=== PATIENT | male | born 1985 | race Two or more races ===

== ENCOUNTER 2016-10-20 14:57 | Emergency (ER) | payer OTHER ==
[~2016-10-20] VITALS: Ht 175.3 cm; Wt 72.6 kg
[~2016-10-20 14:57] MED LIST: CIPROFLOXACIN500 M2 ORAL; LOMOTIL TABLET1 EACH ORAL
[2016-10-20 15:45] VITALS: BP 120/76
[2016-10-20] MEDS ORDERED: IBUPROFEN600 MG ORAL (16:09)
--- NOTE | 2016-10-20 16:17 | Diagnostic Imaging Report ---
Indication: Pain Comparison: None Findings: 3 views of the left foot were obtained. No acute fractures, malalignment, erosions or periostitis are identified. Bone mineralization is within normal limits. Soft tissues are unremarkable. Impression: No acute findings
--- NOTE | 2016-10-22 13:22 | Emergency Room Report ---
History of Present Illness General Chief Complaint: Lower Extremity Injury Source: Patient Present Illness HPI The patient is a 31-year-old male presenting for left foot pain which began 3 days prior. Patient states this pain began after participating in a run. He denies previous injury to the foot. He is unsure of why the pain began. It is worse with walking long distances. It is described as a 6/10 dull ache to the outside of the L foot. pain does not radiate. He has tried naproxen which does help. He denies any other symptoms include N, V, rash, fever, numbness/tingling Allergies: Coded Allergies: No Known Allergies (Unverified , 11/03/14) Patient History Past Medical History: see triage record Pertinent Family History: none Reviewed Nursing Documentation: PMH: Agreed, PSxH: Agreed Nursing Documentation-PMH Past Medical History: No Stated History Review of Systems All Other Systems: negative except mentioned in HPI Physical Exam Vital Signs Date Time Temp Pulse Resp B/P Pulse Ox O2 Delivery O2 Flow Rate FiO2 10/20/16 15:21 98.1 71 18 132/72 98 Room Air Sp02 EP Interpretation: reviewed, normal General Appearance: no apparent distress, alert, GCS 15, non-toxic Head: normocephalic, atraumatic Eyes: bilateral eye PERRL, bilateral eye normal inspection ENT: hearing grossly normal, normal pharynx, no angioedema, normal voice Neck: full range of motion, supple/symm/no masses Musculoskeletal: back normal, gait/station normal, normal range of motion, tender - No ankle tenderness or edema. TTP over the plantar surface of L lateral region. Neurologic: alert, oriented x3, responsive, motor strength/tone normal, sensory intact, normal gait, speech normal Psychiatric: judgement/insight normal, memory normal, mood/affect normal, no suicidal/homicidal ideation Skin: normal color, no rash, warm/dry, well hydrated Lymphatic: no adenopathy Medical Decision Making PA Attestation Dr. Tubbs is my supervising physician. Patient management was discussed with my supervising physician Diagnostic Impression: Primary Impression: Foot pain, left ER Course The patient is a 31-year-old male presenting for left foot pain which began 3 days prior. Ddx considered include but not limited to sprain/strain, fracture, contusion PE: Vitals WNL. NAD. L foot/ankle: Skin intact. No erythema or edema. Sensation intact to light touch. Full AROM. No joint laxity. No obvious deformity. Normal gait. TTP over the plantar surface of lateral foot. No ankle TTP. X-ray of the foot is unremarkable. The patient is discharged home and will followup with PMD. He is given RICE instruction. The patient is informed that he may need advanced imaging if pain continues. ER precautions given Other X-Ray Diagnostic Results Other X-Ray Diagnostic Results : X-Ray Ordered: L foot Date: October 20, 2016 EP Interpretation: Yes Findings: no fractures, no dislocation, no soft tissue swelling Number of Views: 3 PA Scribe Text I am acting as scribe for my supervising physician. My supervising physician's interpretation of the L foot xrays are there are no fractures, dislocations or soft tissue swelling. Last Vital Signs Date Time Temp Pulse Resp B/P Pulse Ox O2 Delivery O2 Flow Rate FiO2 10/20/16 15:45 76 18 120/76 98 Room Air 10/20/16 15:21 98.1 Status: improved Disposition: HOME, SELF-CARE Condition: Improved Scripts Ibuprofen* (MOTRIN*) 600 Mg Tablet 600 MG ORAL Q6H Y for For Pain, #30 TAB Prov: ZAC LOVE 10/20/16 Referrals: NOT CHOSEN IPA/,REFERRING (PCP) Patient Instructions: Foot Contusion, RICE for Routine Care of Injuries Additional Instructions: I discussed my findings with the patient. All questions and concerns have been answered. Treatment and medication compliance have been addressed. I advised the patient that they need to follow up with PMD in 3-5 days. Return to ED if pain remains or worsens, numbness or tingling occurs, new rash is noticed, fever is noticed, or if needed for any reason. Patient verbalized understanding of discharge instructions. ZAC LOVE October 22, 2016 13:22
== END 2016-10-20 16:25 | disposition home or self-care (01) ==
LOC: EMR 15:52
DX: M25.572 Pain in left ankle and joints of left foot (principal)
CPT/HCPCS: 99283

== ENCOUNTER 2017-04-12 01:24 | Emergency (ER) | payer OTHER ==
[~2017-04-12] VITALS: Ht 175.3 cm; Wt 74.8 kg
[~2017-04-12 01:24] MED LIST changes: +IBUPROFEN600 MG ORAL
[2017-04-12 01:48] VITALS: BP 132/83
--- NOTE | 2017-04-12 01:50 | Emergency Room Report ---
History of Present Illness General Chief Complaint: Constipation Source: Patient Present Illness HPI Is a 31-year-old male with no past medical history. He presents with chief complaint abdominal pain and constipation. Onset for 3 days now. Initially has body pain and fever. He has some diarrhea. He took left over Cipro and is not helping. Now with this minimal loose stool. No hard stool. Slight nausea but no vomiting. Pain is 8/10 mostly right side. No other complaint. Allergies: Coded Allergies: No Known Allergies (Unverified , 04/12/17) Patient History Past Medical History: see triage record, old chart reviewed Past Surgical History: none Pertinent Family History: none Social History: Denies: smoking Immunizations: other Reviewed Nursing Documentation: PMH: Agreed, PSxH: Agreed Nursing Documentation-PMH Past Medical History: No Stated History Review of Systems Constitutional: Reports: fever Eye: Denies: eye pain, blurred vision ENT: Denies: ear pain, nose congestion, throat swelling Respiratory: Denies: cough, shortness of breath Cardiovascular: Denies: chest pain, palpitations Gastrointestinal: Reports: abdominal pain, Denies: diarrhea, nausea, vomiting Musculoskeletal: Denies: back pain, joint pain Skin: Denies: rash Neurological: Denies: headache, numbness Endocrine: Denies: increased thirst, increased urine Hematologic/Lymphatic: Denies: easy bruising All Other Systems: negative except mentioned in HPI Physical Exam Vital Signs Date Time Temp Pulse Resp B/P (MAP) Pulse Ox O2 Delivery O2 Flow Rate FiO2 04/12/17 01:36 97.9 62 16 132/83 99 Room Air vitals normal Sp02 EP Interpretation: reviewed, normal General Appearance: well appearing, no apparent distress, alert Head: normocephalic, atraumatic Eyes: bilateral eye PERRL, bilateral eye EOMI ENT: hearing grossly normal, normal pharynx Neck: full range of motion, supple, no meningismus Respiratory: chest non-tender, lungs clear, normal breath sounds Cardiovascular #1: regular rate, rhythm, no murmur Gastrointestinal: normal bowel sounds, no mass, no organomegaly, no bruit, non- distended, tenderness - Right lower quadrant tenderness Musculoskeletal: back normal, gait/station normal, normal range of motion Neurologic: alert, oriented x3 Psychiatric: mood/affect normal Skin: warm/dry Medical Decision Making Diagnostic Impression: Primary Impression: Abdominal pain Qualified Codes: R10.84 - Generalized abdominal pain Additional Impression: Colitis ER Course This patient presents with abdominal pain initially and diarrhea. He has mild. Based on the differential on the CBC, this is most likely viral in nature. I see no need for antibiotics. Has no family history of inflammatory bowel disease. It does continue, he may be referred to CPS and urologist for colonoscopy. We'll discharge home. I see no evidence of acute abdomen or obstruction. Lab Results Impression labs unremarkable CT/MRI/US Diagnostic Results CT/MRI/US Diagnostic Results : Imaging Test Ordered: CT abdomen pelvis Impression Read by radiologist. Mild colonic wall thickening. Normal appendix. Last Vital Signs Date Time Temp Pulse Resp B/P (MAP) Pulse Ox O2 Delivery O2 Flow Rate FiO2 04/12/17 01:36 97.9 62 16 132/83 99 Room Air Status: improved Disposition: HOME, SELF-CARE Condition: Stable Scripts Ibuprofen* (MOTRIN*) 600 Mg Tablet 600 MG ORAL THREE TIMES A DAY, #30 TAB 0 Refills Prov: RADHA JAVIER M.D. 04/12/17 Additional Instructions: Followup with your DrRosa in 3-5 days. Return if symptom worsen. RADHA JAVIER M.D. Apr 12, 2017 01:50
[2017-04-12] MEDS ORDERED: Ketorolac 30mg Inj IV ONE (02:00)
[2017-04-12 02:18] LABS: BASOPHILS % (AUTO) 1.5 % (0.0-2.0); EOSINOPHILS % (AUTO) 2.5 % (0.0-3.0); HEMATOCRIT 47.6 % (42.0-52.0); HEMOGLOBIN 16.3 G/DL (14.2-18.0); LYMPHOCYTES % (AUTO) 47.8 % (20.0-45.0); MEAN CORPUSCULAR VOLUME 93 FL (80-99); MONOCYTES % (AUTO) 14.5 % (1.0-10.0); NEUTROPHILS % (AUTO) 33.8 % (45.0-75.0); PLATELET COUNT 146 K/UL (150-450); RED BLOOD COUNT 5.12 M/UL (4.70-6.10)
[2017-04-12 02:29] LABS: ANION GAP 8 mmol/L (5-15); BLOOD UREA NITROGEN 15 mg/dL (7-18); CALCIUM 9.4 MG/DL (8.5-10.1); CARBON DIOXIDE 28 MMOL/L (21-32); CHLORIDE 103 MMOL/L (98-107); CREATININE 1.2 MG/DL (0.55-1.30); POTASSIUM 4.1 MMOL/L (3.5-5.1); SODIUM 139 MMOL/L (136-145)
[2017-04-12] MEDS ORDERED: IBUPROFEN600 MG ORAL (02:58)
[2017-04-12 03:07] VITALS: BP 132/83
--- NOTE | 2017-04-12 09:44 | Diagnostic Imaging Report ---
Indication: Abdominal pain Technique: Spiral acquisitions obtained through the abdomen and pelvis. No oral contrast utilized, per emergency room physician request No IV contrast utilized, per referring physician request.. Multiplanar reconstructions were generated. Total dose length product 609 mGycm. CTDIvol(s) 13 mGy. Dose reduction achieved using automated exposure control Comparison: None Findings: Normal appendix. There is fluid within the pelvis. There is no evidence of diverticulosis or diverticulitis. There is, however, suggestion of ascending and proximal transverse colonic wall thickening. Considerable retained stool is seen throughout the colon. No free intraperitoneal air. Distal esophagus, stomach, duodenum are unremarkable. No small bowel distention. No renal or ureteral calculi, hydronephrosis, hydroureter. Lack of IV contrast limits assessment of the renal parenchyma. No gross renal parenchymal mass or cyst demonstrated. Unremarkable bladder, seminal vesicles,. There is a small right scrotal hydrocele Lack of IV contrast limits assessment of the other solid organs. The liver, gallbladder, bile ducts, pancreas, spleen, adrenals are unremarkable. No retroperitoneal or mesenteric mass or adenopathy. No pelvic mass or adenopathy. Dependent atelectatic changes and/or scarring are seen at the left lung base. The bones demonstrates degenerative lumbosacral spondylosis. Impression: Possible ascending colitis. Correlate with clinical findings Small amount of free pelvic fluid, suspect related to the above Possible constipation Incidental findings small right scrotal hydrocele, left basilar pulmonary scarring or atelectasis, degenerative spondylosis This agrees with the preliminary interpretation provided overnight by [facility] teleradiology service. The CT scanner at [facility] is accredited by the [employer] and the scans are performed using protocols designed to limit radiation exposure to as low as reasonably achievable to attain images of sufficient resolution adequate for diagnostic evaluation.
== END 2017-04-12 03:05 | disposition home or self-care (01) ==
LOC: EMR 01:53
DX: R10.9 Unspecified abdominal pain (principal); K52.9 Noninfective gastroenteritis and colitis, unspecified; K59.00 Constipation, unspecified; N43.3 Hydrocele, unspecified
CPT/HCPCS: 36415; 74176; 80048; 85025; 96374; 99284; J1885

== ENCOUNTER 2018-05-09 22:05 | Emergency (ER) | payer OTHER ==
[~2018-05-09] VITALS: Ht 175.3 cm; Wt 73.9 kg
--- NOTE | 2018-05-09 22:26 | Emergency Room Report ---
History of Present Illness General Chief Complaint: Lower Extremity Injury Source: Patient Present Illness [facility] This is a 32-year-old male with no past medical history. He presents with chief complaint of left ankle pain. Was walking down the steps and missed the last 2 steps and twisted his ankle. This occurred about to have hours ago. He said he heard a snap. Pain is 7 out of 10. Worse with bearing weight. Can't walk on it. No other injury. Did not pass out. Pain is localized to the left lateral ankle. Allergies: Coded Allergies: No Known Allergies (Unverified , 04/12/17) Patient History Past Medical History: none, see triage record, old chart reviewed Past Surgical History: none Pertinent Family History: none Social History: Denies: smoking Immunizations: other Reviewed Nursing Documentation: PMH: Agreed; PSxH: Agreed Nursing Documentation-PMH Past Medical History: No Stated History Review of Systems Eye: Denies: eye pain, blurred vision ENT: Denies: ear pain, nose congestion, throat swelling Respiratory: Denies: cough, shortness of breath Cardiovascular: Denies: chest pain, palpitations Gastrointestinal: Denies: abdominal pain, diarrhea, nausea, vomiting Musculoskeletal: Reports: joint pain, joint swelling; Denies: back pain Skin: Denies: rash Neurological: Denies: headache, numbness Endocrine: Denies: increased thirst, increased urine Hematologic/Lymphatic: Denies: easy bruising All Other Systems: negative except mentioned in HPI Physical Exam Vital Signs Date Time Temp Pulse Resp B/P (MAP) Pulse Ox O2 Delivery O2 Flow Rate FiO2 05/09/18 22:11 98.1 67 16 119/72 97 Room Air vitals normal Sp02 EP Interpretation: reviewed, normal General Appearance: well appearing, no apparent distress, alert Head: normocephalic, atraumatic Eyes: bilateral eye PERRL, bilateral eye EOMI ENT: hearing grossly normal, normal pharynx Neck: full range of motion, supple, no meningismus Respiratory: chest non-tender, lungs clear, normal breath sounds Cardiovascular #1: regular rate, rhythm, no murmur Gastrointestinal: normal bowel sounds, non tender, no mass, no organomegaly, no bruit, non-distended Musculoskeletal: back normal, other - Left ankle: He has edema and abrasion to the lateral malleolus. Tender to palpation. Pulses normal. Neurologic: alert, oriented x3 Psychiatric: mood/affect normal Skin: warm/dry Procedures Splinting Splinting : Consent: Verbal Location: left ankle Pre-Made Type: aircast Pre-Proc Neuro Vasc Exam: normal Post-Proc Neuro Vasc Exam: normal Patient Tolerated: Well Complications: None Medical Decision Making Diagnostic Impression: Primary Impression: Left ankle sprain Qualified Codes: S93.402A - Sprain of unspecified ligament of left ankle, initial encounter ER Course Patient presents with [id number] left ankle sprain. No evidence of any fracture. We'll discharge home with splinting. Other X-Ray Diagnostic Results Other X-Ray Diagnostic Results : X-Ray ordered: X-rays left ankle # of Views/Limited Vs Complete: 3 View Indication: Pain EP Interpretation: Yes Interpretation: no dislocation, no fractures, other - Soft tissue swelling Impression: Other - no frx. STS Electronically Signed by: Aaron Turner MD Last Vital Signs Date Time Temp Pulse Resp B/P (MAP) Pulse Ox O2 Delivery O2 Flow Rate FiO2 05/09/18 22:11 98.1 67 16 119/72 97 Room Air Status: improved Disposition: HOME, SELF-CARE Condition: Stable Scripts Ibuprofen* (MOTRIN*) 600 Mg Tablet 600 MG ORAL THREE TIMES A DAY, #30 TAB 0 Refills Prov: Aaron Turner MD 05/09/18 Hydrocodone/Acetaminophen 5-325* (HYDROCODONE/ACETAMINOPHEN 5-325*) 1 Each Tablet 1 TAB ORAL Q6H PRN for For Pain, #15 TAB 0 Refills Prov: Aaron Turner MD 05/09/18 Patient Instructions: Ankle Sprain Additional Instructions: Rest. Elevate leg. Ice pack to the area. Worse splint for comfort. Use crutches. Follow-up with your doctor in 7 days. Return if symptom worsen. Aaron Turner MD May 09, 2018 22:26
[2018-05-09] MEDS ORDERED: Norco 5mg/325mg tab ORAL ONE (22:30)
[2018-05-09] MEDS ORDERED: IBUPROFEN600 MG ORAL (23:05)
[2018-05-09] MEDS ORDERED: HYDROCODON-ACE1 EA15 ORAL (23:05)
[2018-05-09 23:30] VITALS: BP 119/72
--- NOTE | 2018-05-10 15:28 | Diagnostic Imaging Report ---
Indication: Pain, twisted ankle Technique: 3 views of the left ankle Comparison: none Findings: There is soft tissue swelling over the lateral malleolus. No acute fractures. No dislocations. The joint spaces are preserved Impression: Evidence of lateral soft tissue injury. No acute bony trauma
== END 2018-05-09 23:30 | disposition home or self-care (01) ==
LOC: EMR 22:49
DX: S93.402A Sprain of unspecified ligament of left ankle, initial encounter (principal); W18.31XA Fall on same level due to stepping on an object, initial encounter; Y93.01 Activity, walking, marching and hiking; Y92.9 Unspecified place or not applicable; Y99.9 Unspecified external cause status
CPT/HCPCS: 29515; 99283

== ENCOUNTER → 2020-02-13 | Day surgery (SDC) | payer BC ==
[~2020-02-13] VITALS: Ht 175.3 cm; Wt 73.5 kg
[2020-02-13] VITALS (10 sets, daily range): BP systolic 125–157; BP diastolic 74–87
[~2020-02-13] MED LIST changes: +Acetaminophen (Non formulary) 100 ML IV ONE; +Atropine Sulfate 0.4mg/ml inj IVP PRN; +Bacitracin Oint 15gm Tube TOPIC ONE; +Betadine 10% Oint 30gm TOPIC ONE; +Cocaine HCl 4% 4ml vial TOPIC ONE; +DiphenhydrAMINE 50mg/ml Inj IVP PRN; +Glycopyrrolate 0.2mg/ml 1ml Vial ONE; +HYDROCODON-ACE1 EA15 ORAL; +HYDROcodone/Acetamin 5/325 tab ORAL PRN; +HYDROcodone/Acetamin 7.5/325 tab ORAL PRN; +Hydromorphone 0.5mg/0.5ml inj IVP PRN; +Kenalog-40 1ml Vial ONE; +Ketorolac 30mg Inj IV PRN; +LORazepam Inj 2mg/ml 1ml IV PRN; +LR 1000ml 1,000 ML IVLG SCH; +LR 1000ml ONE; +Labetalol 5mg/ml 20ml vial IV PRN; +Lidocaine 1% 10mg/ml/EPI 0.01mg/ml 30ml INJ ONE; +Lidocaine 1% MPF 10mg/ml 5ml ONE; +Lidocaine 1% Plain 30 ml INJ ONE; +Meperidine 25mg/0.5ml Inj (FOR RIGORS ONLY) IV PRN; +Metoclopramide 10mg/2ml Inj IVP PRN; +Midazolam 2mg/2ml Inj IVP PRN; +NS Irrig 1000ml ONE; +Neostigmine 1mg/ml 10ml Inj ONE; +Oxymetazoline 0.05% Na Spray 30ml NASAL ONE; +Rocuronium Bromide 50mg/5ml Inj IV ONE; +Sodium Chloride 10ml vial INJ ONE; +Sterile Water Irrig 1000ml IRRIG ONE; +ceFAZolin sod 1 GM in NS 55 ML IVPB ONE; +fentaNYL 100 mcg/2 mL IV ONE; +fentaNYL 100 mcg/2 mL IV PRN; +oxyCODONE HCL/Acetaminophen 5/325mg ORAL PRN; +propofoL 1,000mg/100ml IV ONE
--- NOTE | 2020-02-13 12:09 | Anethesia Preoperative Eval ---
Anesthesia Pre-op PMH/ROS General Date of Evaluation: Feb 13, 2020 Time of Evaluation: 12:31 Anesthesiologist: Eleonora ASA Score: ASA 1 Mallampati Score Class I : Soft palate, uvula, fauces, pillars visible Class II: Soft palate, uvula, fauces visible Class III: Soft palate, base of uvula visible Class IV: Only hard plate visible Mallampati Classification: Class II Surgeon: Mariza Diagnosis: Deviated Septum Surgical Procedure: Septoplasty, Bilateral Turbinectomy Anesthesia History: none Family History: no anesthesia problems Allergies: Coded Allergies: No Known Allergies (Unverified , 02/12/20) Medications: see eMAR Patient NPO?: Yes Anesthesia Pre-op Phys. Exam Physician Exam Last Vital Signs Date Time Temp Pulse Resp B/P (MAP) Pulse Ox O2 Delivery O2 Flow Rate FiO2 02/13/20 11:11 Room Air 02/13/20 11:06 97.1 58 18 130/74 100 Constitutional: NAD Neurologic: CN 2-12 intact Cardiovascular: RRR Respiratory: CTA Gastrointestinal: S/NT/ND Airway Exam Mallampati Score: Class II MO: full ROM: full Teeth: missing, intact Anesthesia Pre-op A/P Risk Assessment & Plan Assessment: ASA 1 Plan: GA, SED, GlideScope Status Change Before Surgery: No Pre-Antibiotics Dru Gram Ancef IV Given Within 1 Hr of Incision: Yes Time Given: 12:51 Enoc Crews MD Feb 13, 2020 12:09
--- NOTE | 2020-02-13 12:10 | 48 Hour Post Anesthesia Eval ---
Post Anesthesia Evaluation Procedure: Septoplasty, Bilateral Turbinectomy Date of Evaluation: Feb 13, 2020 Time of Evaluation: 17:34 Blood Pressure Systolic: 133 0: 87 Pulse Rate: 77 Respiratory Rate: 18 Temperature (Fahrenheit): 98.6 O2 Sat by Pulse Oximetry: 100 Airway: patent Nausea: No Vomiting: No Pain Intensity: 2 Hydration Status: adequate Cardiopulmonary Status: Stable Mental Status/LOC: patient returned to baseline Follow-up Care/Observations: 0 Post-Anesthesia Complications: 0 Follow-up care needed: ready to discharge Enoc Crews MD Feb 13, 2020 12:10
--- NOTE | 2020-02-13 12:10 | Immediate Post-Op Evaluation ---
Immediate Post-Op Evalulation Immediate Post-Op Evalulation Procedure: Septoplasty, Bilateral Turbinectomy Date of Evaluation: Feb 13, 2020 Time of Evaluation: 15:14 IV Fluids: 700 LR Blood Products: 0 Estimated Blood Loss: 25 Urinary Output: 0 Blood Pressure Systolic: 148 Blood Pressure Diastolic: 81 Pulse Rate: 99 Respiratory Rate: 16 O2 Sat by Pulse Oximetry: 100 Temperature (Fahrenheit): 98.5 Pain Score (1-10): 2 Nausea: No Vomiting: No Complications 0 Patient Status: awake, reacts, patent, extubated, none Hydration Status: adequate Dru Gram Ancef IV Given Within 1 Hr of Incision: Yes Time Given: 12:51 Enoc Crews MD Feb 13, 2020 12:10
--- NOTE | 2020-02-13 12:24 | Pre-Procedure Note/Attestation ---
Pre-Procedure Note/Attestation Complete Prior to Procedure Planned Procedure: bilateral Procedure Narrative: nasal obstruction unresponsive to medication Indications for Procedure Pre-Operative Diagnosis: septal deviation, bilateral hypertrophied inferior turbinates Attestation I attest that I discussed the nature of the procedure; its benefits; risks and complications; and alternatives (and the risks and benefits of such alternatives ), prior to the procedure, with the patient (or the patient's legal medical claims representative). I attest that, if there was a reasonable possibility of needing a blood transfusion, the patient (or the patient's legal medical claims representative) was given the [facility] standardized written summary, pursuant to the [place] Blood Safety Act ([place] Health and Safety Code # 1645, as amended). I attest that I re-evaluated the patient just prior to the surgery and that there has been no change in the patient's H&P, except as documented below: Artemio Dawkins MD Feb 13, 2020 12:24
--- NOTE | 2020-02-13 14:52 | Brief Operative Note ---
Immediate Post Operative Note Operative Note Pre-op Diagnosis: septal deviation, bilateral hypertrophied inferior turbinates Procedure: septoplasty, bilateral inferior turbinectomies with intramural coagulation, reconstruction of collapsed left internal valvle Post-op Diagnosis: same as pre-op plus - collapsed left internal valve Surgeon: Artemio Dawkins Anesthesiologist: Cachorro Specimen: yes - septum Complications: none Condition: stable Fluids: ringers lactate Estimated Blood Loss: minimal Drains: none Packing: [email or web address] Implant(s) used?: No Artemio Dawkins MD Feb 13, 2020 14:52
--- NOTE | 2020-02-13 21:29 | Operative Note - Dictated ---
DATE OF OPERATION: 02/13/2020 SURGEON: Artemio Dawkins MD ANESTHESIOLOGIST: Enoc Crews MD PREOPERATIVE DIAGNOSES: 1. Septal deviation. 2. Bilateral hypertrophied inferior turbinates. POSTOPERATIVE DIAGNOSES: 1. Septal deviation. 2. Bilateral hypertrophied inferior turbinates 3. Collapsed left internal valve PROCEDURE: 1. Septoplasty. 2. Bilateral inferior turbinectomies with intramural coagulation. 3. Reconstruction of the left collapsed internal valve. ANESTHESIA: General. INDICATIONS FOR SURGERY: The patient is a 33-year-old male who complains of nasal obstruction with increase in obstruction in the last 2 months. He has tried different medications without relief. His examination reveals a severe left septal deviation almost completely blocking the left nasal airway. Examination of the turbinates revealed bilateral hypertrophied inferior turbinates with with the posterior aspect of the left turbinate indented secondary to the deviated septum. The Bria maneuver was positive on the left side indicating a possible internal valve collapse, but because of the severe nasal obstruction, I could not clearly examine the internal valve until the time of surgery. DESCRIPTION OF PROCEDURE AND FINDINGS: The patient was brought to the operating room while premedicated and have received preoperative antibiotics. The patient was then placed in supine position on the operating room table. After the patient underwent satisfactory endotracheal intubation, he was given IV sedation. The nasal cavity was sprayed with 0.25% Lobito-Synephrine. The left nasal passageway was so obstructed that the Lobito-Synephrine pooled in the lower aspect of the nasal cavity. Sterile Q-tips saturated with Betadine were used to sterile the intranasal cavity and nostrils. Approximately 20 mL of 1% Xylocaine with 1/100,000 epinephrine were used to inject the nasal and septal frameworks. Less than 200 milligrams of cocaine was used in intranasal packing. Because of the patient's severe left nasal airway obstruction the very superior three-quarters could not be adequately examined to see whether the injection had been able to anesthetize the area and control the bleeding and so the area may have to be reinjected during surgery. The patient was then prepped and draped in usual sterile fashion. After a suitable period of vasoconstriction, the left inferior septal incision was then made running into scar tissue. Eventually, a left mucoperichondrial flap was elevated, which was quite difficult because of severe concavity of the inferior aspect of the septum, which buckled upon itself and indenting the hypertrophied left inferior turbinate. Dissection only proceeded a small way inside the nasal cavity because there was no room available to proceed further. That portion of overriding and obstructing cartilage was incised in strips from any attachments and removed from the field of operation. This was continued in small steps until evaluation of the more superior aspect of the nasal cavity could be visualized. A left mucoperiosteal flap was then elevated over the perpendicular plate of the ethmoid and vomer bone. A left inferior maxillary crest spur was removed with mallet and chisel. That portion of the over-riding and obstructing perpendicular plate of the ethmoid and vomer bone were incised in strips, form their attachments and removed from the field of operation Re-examination now revealed persist deviation of the cartilage of the very anterior aspect. With meticulous dissection, the cartilage was able to be removed from the field of operation revealing the internal valve, which was found to be collapsed. Re-examination of the septum found it to be in a more midline physiologic position with good anterior support of the dorsum. An incision was made with a 15 blade between the upper and lower lateral cartilage and carried over the septal angle. Two vertical incisions were made, both inferior and superior to the collapsed internal valve and this was continued through the mucoperichondrium. A transverse incision was then made to connect these two vertical incisions. The entire flap created was then rotated laterally and anteriorly alleviating the internal valve collapse. This was then secured in place with sutures of 4-0 plain. Re-examination still revealed that the inferior turbinates were quite hypertrophied. Bipolar intramural coagulation of both inferior turbinates was performed. An incision was made on the undersurface of both inferior turbinates and mucosa stripped from the underlying bone. The inferior turbinates then outfractured and a small piece of bone removed from the pocket. Re-examination revealed a good bilateral nasal airway with minimal bleeding. All blood was suctioned with suction from the nose and nasopharynx area. A 12 blade was used to make a small opening through the left mucoperichondrium to aid with postop drainage. 4-0 plain was then used to close the septal incisions as well as splint the septum. Telfa coated with Betadine ointment was secured intranasally with suture of 3-0 silk and the procedure was terminated. The patient tolerated the procedure well and left the operating room in satisfactory condition. Estimated blood loss was 30 mL. Sponge and needle count were correct. Artemio Dawkins M.D. DR: Leroy JOB#: [id number] CC: [id number]
== END | disposition home or self-care (01) ==
LOC: SUR 10:32 → MERGE 10:32
DX: J34.2 Deviated nasal septum (principal); J34.3 Hypertrophy of nasal turbinates; M95.0 Acquired deformity of nose
CPT/HCPCS: 30140; 30465; 30520; 94003; C9046; J0131; J0690; J1100; J2001; J2250; J2405; J2704; J2710; J3010; J7120; U0002; 94150